=== PATIENT | female | born 1980 | race Hispanic/Latino ===

== ENCOUNTER 2016-08-04 03:09 | Inpatient (IN) | payer OTHER ==
[~2016-08-04] VITALS: Ht 160 cm; Wt 61.2 kg
[2016-08-04] MEDS ORDERED: Magnesium Hydroxide 10 mL Oral Concentration PO PRN (05:10)
[2016-08-04] MEDS ORDERED: Benzocaine-Menthol Lozenge 2/Pkg PO PRN (05:10)
[2016-08-04] MEDS ORDERED: Alum-Mag Hydrox-Simeth 30 mL Suspension PO PRN (05:10)
[2016-08-04] MEDS ORDERED: LORazepam 1 mg Tablet PO PRN (05:10)
[2016-08-04] MEDS ORDERED: Zolpidem 5 mg Tablet for FEMALE or >65YO PO PRN (05:10)
--- NOTE | 2016-08-04 05:19 | NUR ---
New Admit Involuntary admit arrived from [facility] in [place] @ 0406. She is detained on a petition for initial correction. She presented to their ED with serious intent to harm self by overdose, hanging or shooting self. She was not agreeable to staying in the hospital. She is Egyptian speaking with very limited understanding of Amharic. She has been in the [place] for 2 [place] with her 10 year old daughter. Her only supports are her landlord and an ex boyfriend. She has been attempting to contact the father of her daughter who lives in [place] to take care of their daughter so the patient can kill herself. It is unclear why she wants to commit suicide other than it was reported that "very bad things have happened to her in her apartment". Attempted to perform admit with welder fitter arc on a stick x 2 but both times connection was poor or lost and was unable to complete interview. Staff was able to direct pt to her room with a mix of limited Egyptian on staffs part and limited Amharic on patient's part. Per report pt has had poor sleep, appetite, increasing depression with thoughts of self harm for past several weeks. We will need to schedule an welder fitter arc during day hours in order to have pt sign paperwork and finish admission process. Pt currently quietly resting in bed but does not appear asleep.
[2016-08-04] MEDS ORDERED: No home meds (05:53)
[2016-08-04 10:28] VITALS: BP 116/68; PULSE 110; RESP 16
--- NOTE | 2016-08-04 13:48 | NUR ---
Nursing Note [id number] Behavior S/O: Pt refused to eat breakfast or lunch offered. Pt able to sign paperwork & talk with psychiatrist & briefcase sewer with an dry heat room attendant present. Pt isolating to room. She has been able to communicate at a basic level with Comoran speaking staff. She stated to [facility] that she likes to read. Pt d/n attend any groups today. Pt pleasant & cooperative. Pt took medications as ordered. Pt seen tearful in room several times. Pt on phone at times speaking Comoran. A: Pt is very depressed. P: Provide supportive environment. Monitor medications & effects.
--- NOTE | 2016-08-04 19:38 | CONS ---
[address] [address] CONSULTATION REPORT PATIENT: MEG MEDINA : 1980 MR#: [id number] ADMIT: 08/04/2016 JOB ID: [id number] INITIAL EVALUATION. DATE OF SERVICE: 08/04/2016 IDENTIFICATION OF PATIENT: The patient is a 35-year-old female who reportedly was admitted under VEE status with transfer from [facility] Emergency Department due to significant contributory statements of suicidal ideation with intent and plan. CHIEF COMPLAINT: "I went to the emergency room to get help before it got really bad." HISTORY OF PRESENT ILLNESS: As stated above, the patient reportedly identified that she had gone to the emergency department; and during the episode of interview, she indicates that people misunderstood, and that she did not want to do anything to hurt herself but she knew that she was struggling with increasing factors of depression and anxiety. She characterizes that over the past two months she has been experiencing daily panic attacks, which are characterized by episodes of tachycardia, tachypnea, impending doom. She reports that she is the primary financial earner in her household, which includes her boyfriend and a 4-year-old daughter. She reports that she sends money to her family in [place], and there was concern expressed through the interpretive services that the patient identified that she was planning on killing herself and having contact with her family members in [place] to make sure that her daughter would be taken care of. Meeting with myself and the ocean export agent, she did clarify that she does not want to do anything to hurt herself. She was open to initiation of medications and return to therapy. She identified that she had been seen by a therapist in [place] over the past six months, Honorio Crook and had been working on various therapeutic skills including visual imagery and distraction. She indicated that she has never been on any medications but is open to such. She openly identified increasing difficulties with feelings of depression, including identified feelings of hopelessness, worthlessness, helplessness. She identified complaints of anergia, anhedonia, delays of concentration. She reports that she is very concerned about her daughter, who is actually age 44 years old. 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 She indicates that she is the financial burner of the household. She identified that she lives in [place] for the past 2-1/2 years, and that the rest of her family, including a 14-year-old and 12-year-old live with her grandparents in [place]. In reviewing her current additional history, she denies any concomitant usage of marijuana, alcohol are poly substances. She indicated that she did pick up man nicotine within the past two weeks and is smoking approximately one pack per day. PAST MEDICAL HISTORY: Noted for previous surgical intervention including three C-sections, appendectomy, three D and Cs. ALLERGIES: She is allergic to METOCLOPRAMIDE. MEDICATIONS: She is on no medications at this time. PAST PSYCHIATRIC HISTORY: Substantial for the above information. SOCIAL HISTORY: As noted above, the patient lives in the home with her ex-boyfriend, 4-year-old daughter. She does have two children, ages 14 and 12, who live with her grandparents in [place]. She denies any history of present trauma or abuse. FAMILY HISTORY: Denied. DEVELOPMENTAL HISTORY: Deferred. MENTAL STATUS EXAMINATION: General Appearance: Patient was cooperative, polite. She was seen along with the ocean export agent. She smiled throughout the course of conversation and was coherent. Her speech is of normal tone, frequency, and volume. Her mood was depressed with anxious features. Her affect was congruent. Her thought process showed no evidence of racing thoughts, flight of ideas, loose or disconnected thinking, thought content. She readily admitted to fleeting thoughts of suicide but denied any specific intent or plan. She denied any homicidal variant. She denied any active hallucinations or delusions. She was alert, oriented to person, place, and time. Her attention and concentration intact. Her memory intact. Insight and judgment are fair. DIAGNOSTIC IMPRESSION: AXIS I: 1. Major depressive disorder, recurrent type, nonpsychotic. 2. Panic disorder without agoraphobia. 3. Generalized anxiety disorder features. AXIS II: Deferred. AXIS III: None. AXIS IV: Stressors are noted for current employment, financial distress. AXIS V: Global assessment of functioning current 35. PLANS: 1. Recommendations for initiation of Prozac 20 mg q.a.m. 2. Recommended followup with care providers including outpatient individual therapist and medication management, possibly with connections with [facility]. 3. Probable discharge on Thursday with lapse of court order.
--- NOTE | 2016-08-04 23:17 | NUR ---
Evening 3pm to 11pm Pt AAOx3, mood and affect superficially bright, when asked how she was feeling she stated "good " and smiled. Unable to assess thought process due to language barrier. Pt spent majority of shift in her room resting, OOB for meals, no social interaction with peers or staff. No schedule meds ordered at this time or prn needed or requested.
--- NOTE | 2016-08-05 04:51 | NUR ---
nursing, nights, 11-7 s/o- has appeared to sleep after 2114 during q 15 minute assessments. a- no apparent distress. p- monitor behavior/emotional state, quality, times and amount of sleep, use and effect of medication
--- NOTE | 2016-08-05 13:33 | NUR ---
Nursing Note [id number] Behavior S/O: Pt is eating 1/2 of her meals today. Pt isolated in room except for meals d/t lack of Belarusian. Pt is pleasant & cooperative. Pt requested & received shower today. Pt has stayed in bed most of the day. VS stable. Affect is flat. A: Pt con't to be depressed. P: Provide supportive environment. Monitor medications & effects.
--- NOTE | 2016-08-05 15:16 | PROG NOTE ---
[address] [address] PROGRESS NOTE PATIENT: MEG MEDINA : 1980 MR#: [id number] ADMIT: 08/04/2016 JOB ID: [id number] DATE: 08/05/2016 CHIEF COMPLAINT: "I don't think I can get a ride." This per patient report. HISTORY OF PRESENT ILLNESS: As stated above, the patient identified that she has doubtful that she would be able to get a ride back to [place] after discharge tomorrow. She reportedly has been cooperating with medication administration and showing minimal participation due to significant language barriers. She reportedly did sleep well last evening and she has initiated medication interventions including Prozac at 20 mg q. a.m. OBJECTIVE: On mental status examination, she was bright, cooperative, interactive. She smiled throughout the course of conversation. There was noted language barrier, but the patient was able to respond appropriately to concrete answers. Her mood was neutral. Her affect was full and bright. Her thought process showed no evidence of racing thoughts, loose or disconnected thinking. Her thought content, she denied any evidence of current suicidal ideation, intent or plan. There has been no evidence of hallucinations, delusions. She was alert, oriented to place. Her attention and concentration intact. Insight and judgment are fair. PHYSICAL EXAMINATION: Vital signs of current. Temperature is 36.6, pulse 110, respirations 16, BP 116/68. MEDICATION REVIEW: Includes Prozac 20 mg q. a.m. ASSESSMENT: AXIS I 1. Major depressive disorder, recurrent type, nonpsychotic. 2. Panic disorder without agoraphobia. AXIS II Deferred. AXIS III None. AXIS IV Stressors are noted for disturbance of coping, limited support system. AXIS V Global assessment of functioning current 40. PLANS: 1. Recommendations to discharge tomorrow for continuation of outpatient interventions through [facility]. 2. Continuation of Prozac 20 mg q. a.m.
[2016-08-05 20:45] VITALS: BP 99/69; PULSE 73; RESP 16
--- NOTE | 2016-08-05 22:35 | NUR ---
Nursing Note [id number] Pt up in milieu upon arrival to unit. Pt participated in group acclivities and ate meals and snack. Pt cooperative and polite with minimal socializing with peers noted. Pt affect flat and guarded. Q15 min safety checks done per protocol, Pt currently asleep in room. WCTM sleep, safety, behavior
--- NOTE | 2016-08-06 06:38 | NUR ---
Sleep Adequate sleep through the night with no noted distress per protocol checks. Total sleep over 9 hours.
--- NOTE | 2016-08-06 09:39 | PCM.DIMED ---
Discharge Instructions Date of Service Aug 06, 2016 Dates of Hospitalization Aug 04, 2016 at 04:20 Discharge Diagnosis Discharge Diagnosis Major Depression Recurrent nonpsychotic Panic DO without agoraphobia Activity No restrictions Mookie Butler DO Aug 06, 2016 09:39
[2016-08-06] MEDS ORDERED: PROZ20 PO (09:40)
--- NOTE | 2016-08-06 10:32 | NUR ---
Nursing Discharge- Planned discharge to home today by cab at 1040 Pt. had slept 8.5 hours last night per report. She was able to communicate with staff using a phone translation ap. She rated her depression as 2/10, and denied suicidal thoughts or anxiety. Pt. planned on spending the day with her daughter. Her medications were faxed to [facility] as she had requested. The Pt. expressed an understanding of her medication and follow up plans.
[2016-08-06 11:25] VITALS: BP 94/59; PULSE 83; RESP 16
--- NOTE | 2016-08-06 11:58 | NUR ---
Case Management//Counselor: S/O: Patient slept 8.5+ hours last night per staff. Patient denies S/I and H/I. She also denies auditory and visual hallucinations. Out-patient appointments: Emir Navarro, counselor, 08/11/16 at 11:00am and Dr. Gracia, 08/11/16 at 1:00pm. A: Patient is cooperative, pleasant, hopeful. P: Follow care plan, coordinate out-patient providers.
--- NOTE | 2016-08-06 15:09 | DIS ---
[address] [address] DISCHARGE SUMMARY PATIENT: MEG MEDINA : 1980 MR#: [id number] ADMIT: 08/04/2016 JOB ID: [id number] DIS: 08/06/2016 ADMITTING DIAGNOSES: AXIS I 1. Major depressive disorder, recurrent type, nonpsychotic. 2. Panic disorder without agoraphobia. 3. Generalized anxiety disorder features. AXIS II Deferred. AXIS III None. AXIS IV Stressors are noted for current employment, financial distress. AXIS V Global assessment of functioning current 35. DISCHARGE DIAGNOSES: AXIS I 1. Major depressive disorder, recurrent type, nonpsychotic. 2. Panic disorder without agoraphobia. 3. Generalized anxiety disorder features. AXIS II Deferred. AXIS III None. AXIS IV Stressors are noted for current employment, financial distress. AXIS V Global assessment of functioning current 50. REASON FOR ADMISSION: The patient was a 35-year-old female who was admitted under VEE status with transfer from [facility] emergency department due to contributory statements of suicidal ideation with intent and plan. During the hospital course, the patient readily identified significant difficulties with daily panic attacks, struggles with financial fears and a concern that she was not going to be able to take care of her family members. Throughout hospital course, the patient did meet with myself, AJ, also significant interventions with an optical instrument assembler. The patient elected to initiate doses of Prozac 20 mg q. a.m., and showed significant improvement with her overall status and mood. She was later released with recommendations of followup with outpatient care providers in the [facility]. CONDITION AT TIME OF DISCHARGE: On the patient's mental status examination, she was bright, cooperative, interactive. She denied any evidence of current distress. Her speech was of normal tone, frequency and volume. Her mood was neutral. Her affect was congruent. Her thought process showed no evidence of random flight of ideas, loose or disconnected thinking. She was expressing no evidence of suicidal ideation, intent or plan. No evidence of homicidal ideation. No evidence of active hallucinations, delusions. She was alert, oriented to person, place, time, situation. Attention and concentration intact. Memory intact in the short term, correction, recent. Insight and judgment were fair. DISCHARGE PLANS: Include: 1. Continuation of Prozac 20 mg q. a.m., one month supply, no refills. Reason for usage: Antidepressant. 2. Followup with [facility] for continuation of medication management, individual therapies.
== END 2016-08-06 10:48 | disposition home or self-care (01) | DRG 751 ==
LOC: MHC 04:20
PROVIDERS: ADMIT Psychiatry & Neurology Psychiatry; ATTEND Psychiatry & Neurology Psychiatry
DX: F33.2 Major depressive disorder, recurrent severe without psychotic features (principal); F41.0 Panic disorder [episodic paroxysmal anxiety]; F41.1 Generalized anxiety disorder